=== PATIENT | male | born 1965 | race Caucasian/White ===

== ENCOUNTER 2016-06-24 19:11 | Emergency (ER) | payer OTHER ==
[2016-06-24 19:53] VITALS: BP 117/93
--- NOTE | 2016-06-24 21:16 | XRay Report ---
FINAL REPORT EXAM: XR FINGER(S) 2 LT HISTORY: Injury; left hand, 2nd digit pain TECHNIQUE: AP, lateral, and oblique views of the left index finger PRIORS: None. FINDINGS: There is no evidence for acute fracture or dislocation. No soft tissue swelling or radiopaque foreign bodies are seen. Bony mineralization is normal and joint spaces are maintained. Metallic ring is present on the 4th finger. IMPRESSION: No acute bony or soft tissue abnormality noted.
--- NOTE | 2016-06-24 22:48 | Emergency Department Report ---
HPI - General Chief Complaint: Extremity Injury, Upper Time Seen by Provider: 06/24/16 20:21 - HPI HPI: 51-year-old male presents today complaining of left index finger pain post slamming his finger in a trap door at 1645 hrs. today. Patient describes his pain as 6/10 throbbing, aching pain. Denies trying any medication for pain relief. Denies history of injury or surgery to the area. Denies numbness, weakness, paresthesias. Denies fever, chills, nausea, vomiting, chest pain, shortness of breath, abdominal pain. ED Past Medical Hx - Past Medical History Previous Medical History?: No - Surgical History Past Surgical History?: No - Social History Smoking Status: Current Every Day Smoker Substance Use Type: Alcohol - Medications Home Medications: Home Medications Medication Instructions Recorded Confirmed Last Taken Type Naproxen [Naprosyn] 500 mg PO BID #30 tablet 06/24/16 Unknown Rx ED Review of Systems ROS: Stated complaint: INJURY TO LT POINTER FINGER Other details as noted in HPI Constitutional: denies: chills, fever, malaise Eyes: denies: eye pain ENT: denies: ear pain, throat pain, congestion Respiratory: denies: cough, shortness of breath, wheezing Cardiovascular: denies: chest pain, palpitations Endocrine: no symptoms reported Gastrointestinal: denies: abdominal pain, nausea, vomiting Musculoskeletal: arthralgia Neurological: denies: headache, weakness, numbness, paresthesias Physical Exam - Physical Exam Vital Signs: Vital Signs 06/24/16 19:48 Temperature 98.8 F Pulse Rate 69 Respiratory 18 Rate Blood Pressure 117/93 O2 Sat by Pulse 97 Oximetry Physical Exam: GENERAL: The patient is well-developed and well-nourished. Patient is in NAD. HEAD: Normocephalic. Atraumatic. CHEST/LUNGS: Clear to auscultation throughout. HEART/CARDIOVASCULAR: Regular rate and rhythm. No murmurs, rubs or gallops. ABDOMEN: Abdomen is soft, nontender. Bowel sounds normoactive. No guarding or rebound tenderness. LEFT HAND: Full wrist and digit range of motion. Tenderness to palpation over left index finger tip and nail bed. Positive for small subungual hematoma. Normal sensation. 2 point discrimination intact. Peripheral pulses intact. Capillary refill less than 2 seconds. NEURO: Alert and oriented x 3. Normal gait. ED Course Vital Signs 06/24/16 19:48 Temperature 98.8 F Pulse Rate 69 Respiratory 18 Rate Blood Pressure 117/93 O2 Sat by Pulse 97 Oximetry ED Medical Decision Making - Lab Data Vital Signs 06/24/16 19:48 Temperature 98.8 F Pulse Rate 69 Respiratory 18 Rate Blood Pressure 117/93 O2 Sat by Pulse 97 Oximetry - Radiology Data Radiology results: report reviewed EXAM: XR FINGER(S) 2 LT HISTORY: Injury; left hand, 2nd digit pain TECHNIQUE: AP, lateral, and oblique views of the left index finger PRIORS: None. FINDINGS: There is no evidence for acute fracture or dislocation. No soft tissue swelling or radiopaque foreign bodies are seen. Bony mineralization is normal and joint spaces are maintained. Metallic ring is present on the 4th finger. IMPRESSION: No acute bony or soft tissue abnormality noted. - Medical Decision Making 51-year-old male presents today with left index finger pain post injury. His x- ray results reveal no acute bony or soft tissue abnormality. Patient is in no acute distress at this time. He will be discharged home and is encouraged to follow up with a primary care provider. He will be sent home on Naprosyn and is encouraged to return to the emergency room for any worsening symptoms. Critical care attestation.: If time is entered above; I have spent that time in minutes in the direct care of this critically ill patient, excluding procedure time. ED Disposition Clinical Impression: Subungual hematoma Finger pain Qualifiers: Laterality: left Qualified Code(s): M79.645 - Pain in left finger(s) Disposition: DISCHARGED TO HOME OR SELFCARE Is pt being admited?: No Does the pt Need Aspirin: No Condition: Stable Instructions: Subungual Hematoma (ED), Finger Sprain (ED) Additional Instructions: Follow-up with primary care provider. Return to the emergency department if symptoms worsen. Prescriptions: Naproxen [Naprosyn] 500 mg PO BID #30 tablet Referrals: EMILY THOMAS MD [Primary Care Provider] - 3-5 Days KRISTINE FREEMAN MD [Staff Physician] - 3-5 Days Forms: Work/School Release Form(ED) Time of Disposition: 22:48
== END 2016-06-24 22:56 | disposition home or self-care (01) ==
LOC: ED 19:11
DX: S60.022A Contusion of left index finger without damage to nail, initial encounter (principal); M79.645 Pain in left finger(s); F17.200 Nicotine dependence, unspecified, uncomplicated; X58.XXXA Exposure to other specified factors, initial encounter; Y93.89 Activity, other specified; Y92.89 Other specified places as the place of occurrence of the external cause; Y99.8 Other external cause status